=== PATIENT | female | born 1955 | race Caucasian/White ===

== ENCOUNTER 2017-09-12 00:40 | Emergency (ER) | payer MEDICAID ==
[2017-09-12 00:48] VITALS: BP 126/78
--- NOTE | 2017-09-12 00:58 | EDM.PDOC ---
ED HPI GENERAL MEDICAL PROBLEM - General Chief Complaint: Chest Pain Stated Complaint: CHEST PAINS [id number] Time Seen by Provider: 09/12/17 00:53 Source of Information: Reports: Patient History Limitations: Reports: No Limitations - History of Present Illness INITIAL COMMENTS - FREE TEXT/NARRATIVE: woke up from sharp pain middle of lower sternal region felt like got hit with sledge hammer lasted 1 1/2 minutes then subsided but still feels heavy. took 2x ASA then came here. feels better but uncomfortable without the sharp pain. denies prior h/o denies stents/DC, denies COPD but has asthma, denies GERD. Chest Pain Score (Numeric/FACES): 7 - Related Data Allergies Allergy/AdvReac Type Severity Reaction Status Date / Time codeine Allergy Stomach Verified 09/12/17 00:46 Upset nitroglycerin Allergy Rash Verified 09/12/17 00:46 molds Allergy Cough Uncoded 09/12/17 00:46 Home Meds: Home Meds ALPRAZolam [Xanax] 1 mg PO ASDIRECTED PRN 05/07/14 [History] Albuterol Sulfate [Albuterol Sulfate HFA] 8.5 gm IH TID PRN 05/07/14 [History] Hydrochlorothiazide 25 mg PO DAILY 05/07/14 [History] Metoprolol Succinate [Toprol XL] 25 mg PO DAILY 05/07/14 [History] Montelukast [Singulair] 10 mg PO DAILY 05/07/14 [History] PARoxetine HCl [Paxil] 70 mg PO DAILY 05/07/14 [History] oxyCODONE HCl/Acetaminophen [Percocet 10-325 MG] 10 mg PO TID PRN 05/07/14 [ History] Albuterol [Proventil HFA] 6.7 gm INH DAILY 03/29/16 [History] Cyanocobalamin (Vitamin B12) [Vitamin B13] 500 mcg PO DAILY 03/29/16 [History] Lysine 500 mg PO DAILY 03/29/16 [History] Omeprazole 20 mg PO DAILY 03/29/16 [History] Topiramate [Topamax] 25 mg PO DAILY 03/29/16 [History] Past Medical History Cardiovascular History: Reports: Other (See Below) Other Cardiovascular History: mitral valve prolapse Respiratory History: Reports: Asthma, Other (See Below) Other Respiratory History: has had pnumonia greater then 25 times, during asthma studies under age 14 was hospitalized. Genitourinary History: Reports: None [employer] History: Reports: Polycystic Ovaries Musculoskeletal History: Reports: Back Pain, Chronic, Other (See Below) Other Musculoskeletal History: DJD, scoliosis, spinal stenosis, bulging disc, fx discs, 4.5cm tear to right rotar cuff Neurological History: Reports: Head Trauma, Migraines Psychiatric History: Reports: Anxiety, Bipolar, PTSD, Other (See Below) Other Psychiatric History: borderline personality disorder Hematologic History: Reports: Other (See Below) Other Hematologic History: low potassium - Infectious Disease History Infectious Disease History: Reports: Measles, Mumps - Past Surgical History Female Surgical History: Reports: Section, Other (See Below) Social & Family History - Tobacco Use Smoking Status *Q: Never Smoker Second Hand Smoke Exposure: No - Caffeine Use Caffeine Use: Reports: Coffee, Soda - Alcohol Use Days Per Week of Alcohol Use: 0 - Recreational Drug Use Recreational Drug Use: No Drug Use in Last 12 Months: No - Living Situation & Occupation Living situation: Reports: with Family Occupation: Disabled ED ROS GENERAL - Review of Systems Review Of Systems: ROS reveals no pertinent complaints other than HPI. ED EXAM, GENERAL - Physical Exam Exam: See Below Exam Limited By: No Limitations General Appearance: Alert, WD/WN, Anxious, Mild Distress, Moderate Distress, Other (discomfort) Ears: Hearing Grossly Normal Throat/Mouth: Normal Voice, No Airway Compromise Head: Atraumatic Neck: Non-Tender, Full Range of Motion Respiratory/Chest: No Respiratory Distress, Other (mild sternal tenderness) Cardiovascular: Regular Rate, Rhythm GI/Abdominal: Soft, Non-Tender Neurological: Alert, Oriented, Normal Cognition, Normal Gait, No Motor/Sensory Deficits Psychiatric: Flat Affect Skin Exam: Warm, Dry, Normal Color Lymphatic: No Adenopathy Course - Vital Signs Last Recorded V/S: Last Vital Signs Temp 36.3 C 09/12/17 00:46 Pulse 67 09/12/17 00:46 Resp 18 09/12/17 00:46 BP 126/78 09/12/17 00:46 Pulse Ox 98 09/12/17 00:46 - Orders/Labs/Meds Orders: Active Orders 24 hr Category Date Time Status EKG 12 Lead [EKG Documentation Completion] [RC] STAT Care 09/12/17 02:16 Ordered Sodium Chloride 0.9% [Normal Saline] 1,000 ml Med 09/12/17 01:00 Active IV ASDIRECTED Medication Orders Sodium Chloride (Normal Saline) 1,000 mls @ 150 mls/hr IV ASDIRECTED STEVEN Last Admin: 09/12/17 01:09 Dose: 150 mls/hr Labs: Laboratory Tests 09/12/17 09/12/17 09/12/17 Range/Units 00:58 00:58 00:58 WBC 8.6 (5.0-10.0) 10^3/uL RBC 4.12 L (4.2-5.4) 10^6/uL Hgb 12.5 D (12.0-16.0) g/dL Hct 38.0 (37.0-47.0) % MCV 92.2 D (80-100) fL MCH 30.3 (27.0-34.0) pg MCHC 32.9 L (33.0-35.0) g/dL Plt Count 326 (150-450) 10^3/uL Neut % (Auto) 48.5 (42.2-75.2) % Lymph % (Auto) 40.0 (20.5-50.1) % Alfalfa % (Auto) 10.3 H (2-8) % Eos % (Auto) 1.0 (1.0-3.0) % Baso % (Auto) 0.2 (0.0-1.0) % D-Dimer, Quantitative 185 (0-400) ng/mL Sodium 135 (135-145) mmol/L Potassium 2.8 L (3.6-5.0) mmol/L Chloride 95 L (101-111) mmol/L Carbon Dioxide 32.0 H (21.0-31.0) mmol/L Anion Gap 10.8 BUN 20 H (7-18) mg/dL Creatinine 0.8 (0.6-1.3) mg/dL Est Cr Clr Drug Dosing 51.70 mL/min Estimated GFR (MDRD) > 60 BUN/Creatinine Ratio 25.00 Glucose 82 (74-105) mg/dL Calcium 8.6 (8.4-10.2) mg/dl Total Bilirubin 0.6 (0.2-1.0) mg/dL AST 23 (10-42) IU/L ALT 16 (10-60) IU/L Alkaline Phosphatase 41 L (42-121) IU/L Troponin I 0.03 H* (0.00-0.02) ng/ml Total Protein 6.6 L (6.7-8.2) g/dl Albumin 3.7 (3.2-5.5) g/dl Globulin 2.9 Albumin/Globulin Ratio 1.28 Meds: Medications Generic Name Dose Route Start Last Admin Trade Name Mayra PRN Reason Stop Dose Admin Sodium Chloride 1,000 mls @ 150 mls/hr 09/12/17 01:00 09/12/17 01:09 Normal Saline IV 150 mls/hr ASDIRECTED STEVEN Administration Discontinued Medications Generic Name Dose Route Start Last Admin Trade Name Mayra PRN Reason Stop Dose Admin Ketorolac Tromethamine 15 mg 09/12/17 01:25 09/12/17 01:30 Toradol IVPUSH 09/12/17 01:26 15 mg ONETIME ONE Administration - Re-Assessments/Exams Free Text/Narrative Re-Assessment/Exam: 09/12/17 01:11 re-exam; states chest heaviness & sharp pain gone but now has WALKER with pressure in her head which she gets from the weather. 09/12/17 02:17 results discussed with pt who remains pain free. case discussed with Dr Green @ who kindly accepted pt. Departure - Departure Time of Disposition: 02:18 Disposition: DC/Tfer to Acute Hospital 02 Reason for Transfer *Q: Other Condition: Good Clinical Impression: Elevated troponin I level Chest pain Qualifiers: Chest pain type: other chest pain Qualified Code(s): R07.89 - Other chest pain ; R07.8 - Other chest pain Forms: Interfacility Transfer EMTALA - My Orders Last 24 Hours: My Active Orders 09/12/17 01:00 Sodium Chloride 0.9% [Normal Saline] 1,000 ml IV ASDIRECTED 09/12/17 02:16 EKG 12 Lead [EKG Documentation Completion] [RC] STAT - Assessment/Plan Last 24 Hours: My Active Orders 09/12/17 01:00 Sodium Chloride 0.9% [Normal Saline] 1,000 ml IV ASDIRECTED 09/12/17 02:16 EKG 12 Lead [EKG Documentation Completion] [RC] STAT
[2017-09-12] MEDS ORDERED: Sodium Chloride 0.9% 1,000 ML IV SCH (01:00)
[2017-09-12] MEDS ORDERED: Ketorolac 30 MG/ML SDV IVPUSH ONE (01:25)
[2017-09-12 01:49] LABS: CHLORIDE,CL 95 mmol/L (101-111); SODIUM,NA 135 mmol/L (135-145)
--- NOTE | 2017-09-14 12:34 | EKG ---
09/12/2017 - PASCUAL SCHWAB M - TIME: 2:23:31. 12 lead EKG shows normal sinus rhythm with possible first-degree AV block with heart rate of 65, MS interval of 220. No significant ST elevation or ST depression noted on this 12-lead EKG. [facility] /[id number]
--- NOTE | 2017-09-14 13:01 | EKG ---
09/12/2017 - PASCUAL SCHWAB - TIME: 00:52:59 FINDINGS: A 12-lead EKG shows normal sinus rhythm with first-degree AV block with FL interval of 216, heart rate of 66. No significant ST elevation or ST depression noted on this 12-lead EKG. Nonspecific ST-T wave changes noted on lead V3. [facility] /[id number]
== END 2017-09-12 02:42 ==
LOC: DL.ED 00:40
DX: R07.89 Other chest pain (principal); R79.89 Other specified abnormal findings of blood chemistry; J45.909 Unspecified asthma, uncomplicated; Z88.5 Allergy status to narcotic agent; Z91.048 Other nonmedicinal substance allergy status; Z79.899 Other long term (current) drug therapy
CPT/HCPCS: 36415; 80053; 84484; 85025; 85379; 93005; 96361; 96374; 99285; J1885; J7030

== ENCOUNTER → 2018-09-18 | Outpatient (CLI) | payer MEDICAID | LOC: DL.CLIN 09:44 | PROVIDERS: ATTEND Physician Assistant Medical | DX: M25.561 Pain in right knee (principal); M25.562 Pain in left knee; M17.0 Bilateral primary osteoarthritis of knee | CPT/HCPCS: 73560-LT; 73560-RT; 73565 ==

== ENCOUNTER 2021-10-03 13:37 | Emergency (ER) | payer MEDICARE, MEDICAID ==
[2021-10-03 14:50] VITALS: BP 149/84; PULSE 97
[2021-10-03 15:06] LABS: ANION GAP 18.1 mEq/L (7-13); CHLORIDE,CL 101 mmol/L (98-107); SODIUM,NA 142 mmol/L (136-145)
[2021-10-03] MEDS ORDERED: Iopamidol 612 MG/ML 100 ML Bottle IVPUSH ONE (15:30)
[2021-10-03] MEDS ORDERED: Acetaminophen/oxyCODONE 325-5 MG Tab PO ONE (16:14)
[2021-10-03] MEDS ORDERED: LORazepam 1 MG Tab PO ONE (17:03)
== END 2021-10-03 17:19 | disposition home or self-care (01) ==
LOC: DL.ED 13:37
DX: N28.1 Cyst of kidney, acquired (principal); E87.6 Hypokalemia; F41.9 Anxiety disorder, unspecified; J44.9 Chronic obstructive pulmonary disease, unspecified; K21.9 Gastro-esophageal reflux disease without esophagitis; Z88.5 Allergy status to narcotic agent; Z88.8 Allergy status to other drugs, medicaments and biological substances; Z91.048 Other nonmedicinal substance allergy status; Z79.82 Long term (current) use of aspirin; Z79.899 Other long term (current) drug therapy; Z85.038 Personal history of other malignant neoplasm of large intestine
CPT/HCPCS: 36415; 74177; 80053; 85025; 99284-25; A9270-GY; Q9967

== ENCOUNTER 2023-01-28 19:51 | Emergency (ER) | payer MEDICARE, MEDICAID ==
[2023-01-28 20:37] LABS: BASOPHILS PERCENT AUTO 0.2 % (0.0-1.0); EOSINOPHILS PERCENT AUTO 0.1 % (1.0-3.0); HEMOGLOBIN 13.6 g/dL (12.0-16.0); LYMPHOCYTES PERCENT AUTO 32.3 % (20.5-50.1); MEAN CORPUSCULAR HEMOGLOBIN 28.9 pg (27.0-34.0); MEAN CORPUSCULAR HGB CONC 33.2 g/dL (33.0-35.0); NEUTROPHILS PERCENT AUTO 55.4 % (42.2-75.2); PLATELET COUNT,PLT 494 10^3/uL (150-450); RED BLOOD CELL COUNT 4.71 10^6/uL (4.2-5.4); WHITE BLOOD CELL COUNT,WBC 10.3 10^3/uL (5.0-10.0)
[2023-01-28 20:39] VITALS: BP 156/92; PULSE 122
[2023-01-28 20:48] LABS: ALANINE AMINOTRANSFERASE,ALT 18 U/L (14-59); ALBUMIN 3.3 g/dL (3.4-5.0); ALKALINE PHOSPHATASE 65 U/L (46-116); ANION GAP 12.5 mEq/L (7-13); ASPARTATE AMNIOTRANSFERASE,AST 19 U/L (15-37); BILIRUBIN TOTAL 0.4 mg/dL (0.2-1.0); BLOOD UREA NITROGEN,BUN 9 mg/dL (7-18); BUN/CREATININE RATIO 8.3 (No establ ref range); CALCIUM 9.2 mg/dL (8.5-10.1); CARBON DIOXIDE,CO2 30 mmol/L (21-32); CHLORIDE,CL 102 mmol/L (98-107); CREATININE 1.08 mg/dL (0.55-1.02); EST CRCL DRUG DOSING (CG) 35.81 mL/min; GLUCOSE RANDOM 130 mg/dL (70-99); LIPASE 170 U/L (73-393); MAGNESIUM 1.8 mg/dL (1.8-2.4); POTASSIUM,K 2.5 mmol/L (3.5-5.1); SODIUM,NA 142 mmol/L (136-145)
[2023-01-28 20:50] LABS: A/G RATIO 0.89; C-REACTIVE PROTEIN < 0.2 mg/dL (0.0-0.9); ESTIMATED GFR 56 mL/min (>=60); ETHANOL BLOOD MEDICAL < 3 mg/dL (0)
[2023-01-28 20:55] LABS: APPEARANCE,URINE CLEAR (CLEAR); BILIRUBIN,URINE NEGATIVE (NEGATIVE); COLOR,URINE YELLOW (YELLOW); GLUCOSE,URINE NEGATIVE (NEGATIVE); KETONES,URINE NEGATIVE (NEGATIVE); LEUKOCYTE ESTERASE,URINE NEGATIVE (NEGATIVE); NITRITE,URINE NEGATIVE (NEGATIVE); OCCULT BLOOD,URINE NEGATIVE (NEGATIVE); PH,URINE 6.5 (5.0-9.0); PROTEIN,URINE NEGATIVE (NEGATIVE); UROBILINOGEN,URINE 0.2 mg/dL (0.2-1.0)
[2023-01-28 20:56] LABS: AMPHETAMINES,URINE NEGATIVE (NEGATIVE); BARBITURATES,URINE NEGATIVE (NEGATIVE); BENZODIAZEPINE,URINE NEGATIVE (NEGATIVE); MDMA (ECSTASY), URINE NEGATIVE (NEGATIVE); METHADONE,URINE NEGATIVE (NEGATIVE); METHAMPHETAMINES,URINE NEGATIVE (NEGATIVE); OPIATES,URINE NEGATIVE (NEGATIVE); OXYCODONE,URINE NEGATIVE (NEGATIVE); PHENCYCLIDINE,URINE NEGATIVE (NEGATIVE); TCA,URINE NEGATIVE (NEGATIVE)
[2023-01-28] MEDS: Potassium Chloride 10% 20 MEQ/15 ML Soln 15 ML UD Cup PO ONE ×2 (21:23→22:20)
[2023-01-28] MEDS: Sodium Chloride 0.9% 1,000 ML IV ONE (21:23)
[2023-01-28 21:56] LABS: O2 DELIVERY DEVICE ROOM AIR
[2023-01-28 21:57] LABS: BASE EXCESS ARTERIAL 1 mmol/L ((-2)-(+3)); BICARBONATE,ARTERIAL 25.1 mmol/L (22-26); O2 SATURATION ARTERIAL 97 % (95-100); PCO2 ARTERIAL 40 mmHg (35-45); PH,ARTERIAL 7.42 (7.35-7.45); PO2 ARTERIAL 90 mmHg (70-100)
[2023-01-28 21:58] LABS: ALLEN TEST positive
== END 2023-01-28 22:30 | disposition home or self-care (01) ==
LOC: DL.ED 19:51
DX: E86.0 Dehydration (principal); R43.1 Parosmia; R43.8 Other disturbances of smell and taste; R03.0 Elevated blood-pressure reading, without diagnosis of hypertension; J44.9 Chronic obstructive pulmonary disease, unspecified; K21.9 Gastro-esophageal reflux disease without esophagitis; E66.9 Obesity, unspecified; Z68.37 Body mass index [BMI] 37.0-37.9, adult; Z86.16 Personal history of COVID-19; Z91.048 Other nonmedicinal substance allergy status; Z88.5 Allergy status to narcotic agent; Z88.8 Allergy status to other drugs, medicaments and biological substances; Z79.899 Other long term (current) drug therapy; Z79.82 Long term (current) use of aspirin; Z20.822 Contact with and (suspected) exposure to COVID-19
CPT/HCPCS: 36415; 36600; 71045; 80053; 80305-QW; 80307; 81003; 82375; 82803; 83605; 83690; 83735; 85025; 86140; 96360; 99284; 99284-25; A9270-GY; J7030; U0002

== ENCOUNTER 2023-02-02 03:20 | Emergency (ER) | payer MEDICARE, MEDICAID ==
[2023-02-02] MEDS ORDERED: Sodium Chloride 0.9% 10 ML Syringe FLUSH PRN (04:05)
[2023-02-02 04:21] LABS: HEMATOCRIT 38.3 % (37.0-47.0); HEMOGLOBIN 12.7 g/dL (12.0-16.0); MEAN CORPUSCULAR HEMOGLOBIN 28.9 pg (27.0-34.0); MEAN CORPUSCULAR HGB CONC 33.2 g/dL (33.0-35.0); MEAN CORPUSCULAR VOLUME 87.2 fL (80-100); PLATELET COUNT,PLT 487 10^3/uL (150-450); RED BLOOD CELL COUNT 4.39 10^6/uL (4.2-5.4); WHITE BLOOD CELL COUNT,WBC 8.9 10^3/uL (5.0-10.0)
[2023-02-02 04:28] LABS: BASOPHILS PERCENT AUTO 0.2 % (0.0-1.0); LYMPHOCYTES PERCENT AUTO 18.1 % (20.5-50.1); MONOCYTES PERCENT AUTO 5.9 % (2-8); NEUTROPHILS PERCENT AUTO 75.8 % (42.2-75.2)
[2023-02-02 04:32] VITALS: BP 143/92; PULSE 105
[2023-02-02 04:35] LABS: LYMPHOCYTES PERCENT MAN 23 % (20-50); MONOCYTES PERCENT MAN 4 % (2-8); SEG NEUTROPHILS PERCENT MAN 73 % (42-75)
[2023-02-02 04:38] LABS: ALBUMIN 3.1 g/dL (3.4-5.0); ANION GAP 12.4 mEq/L (7-13); BILIRUBIN TOTAL 0.5 mg/dL (0.2-1.0); BUN/CREATININE RATIO 13.7 (No establ ref range); CALCIUM 8.6 mg/dL (8.5-10.1); CREATININE 0.95 mg/dL (0.55-1.02); EST CRCL DRUG DOSING (CG) 57.17 mL/min; MAGNESIUM 1.7 mg/dL (1.8-2.4); POTASSIUM,K 3.4 mmol/L (3.5-5.1); PROTEIN TOTAL,TP 6.3 g/dL (6.4-8.2)
[2023-02-02 04:42] LABS: LACTIC ACID 1.6 mmol/L (0.4-2.0)
[2023-02-02 04:44] LABS: A/G RATIO 0.97
[2023-02-02] MEDS ORDERED: Iopamidol 612 MG/ML 100 ML Bottle IVPUSH ONE (04:45)
== END 2023-02-02 06:31 | disposition home or self-care (01) ==
LOC: DL.ED 03:20
DX: R10.84 Generalized abdominal pain (principal); I10 Essential (primary) hypertension; I25.2 Old myocardial infarction; J44.9 Chronic obstructive pulmonary disease, unspecified; K21.9 Gastro-esophageal reflux disease without esophagitis; E66.9 Obesity, unspecified; Z68.27 Body mass index [BMI] 27.0-27.9, adult; Z88.5 Allergy status to narcotic agent; Z91.048 Other nonmedicinal substance allergy status; Z79.899 Other long term (current) drug therapy
CPT/HCPCS: 36415; 74177; 80053; 83605; 83690; 83735; 85025; 99284; Q9967; J3490

== ENCOUNTER 2023-04-23 14:57 | Emergency (ER) | payer MEDICAID, MEDICARE ==
[2023-04-23] MEDS: Sodium Chloride 0.9% 10 ML Syringe FLUSH PRN (15:18)
[2023-04-23 15:33] VITALS: BP 172/73; PULSE 98
[2023-04-23 15:35] LABS: BASOPHILS PERCENT AUTO 0.5 % (0.0-1.0); EOSINOPHILS PERCENT AUTO 2.9 % (1.0-3.0); HEMATOCRIT 40.6 % (37.0-47.0); HEMOGLOBIN 13.1 g/dL (12.0-16.0); LYMPHOCYTES PERCENT AUTO 37.4 % (20.5-50.1); MEAN CORPUSCULAR HEMOGLOBIN 27.9 pg (27.0-34.0); MEAN CORPUSCULAR HGB CONC 32.3 g/dL (33.0-35.0); MEAN CORPUSCULAR VOLUME 86.6 fL (80-100); MONOCYTES PERCENT AUTO 9.7 % (2-8); NEUTROPHILS PERCENT AUTO 49.5 % (42.2-75.2); PLATELET COUNT,PLT 411 10^3/uL (150-450); RED BLOOD CELL COUNT 4.69 10^6/uL (4.2-5.4); WHITE BLOOD CELL COUNT,WBC 9.3 10^3/uL (5.0-10.0)
[2023-04-23 15:56] LABS: LACTIC ACID 2.2 mmol/L (0.4-2.0)
[2023-04-23 15:59] LABS: ALANINE AMINOTRANSFERASE,ALT 14 U/L (14-59); ALBUMIN 3.1 g/dL (3.4-5.0); ALKALINE PHOSPHATASE 86 U/L (46-116); ANION GAP 13.8 mEq/L (7-13); ASPARTATE AMNIOTRANSFERASE,AST 16 U/L (15-37); BILIRUBIN TOTAL 0.6 mg/dL (0.2-1.0); BLOOD UREA NITROGEN,BUN 6 mg/dL (7-18); BUN/CREATININE RATIO 8.1 (No establ ref range); C-REACTIVE PROTEIN 1.37 ng/dL (<=0.30); CALCIUM 9.2 mg/dL (8.5-10.1); CARBON DIOXIDE,CO2 30 mmol/L (21-32); CHLORIDE,CL 98 mmol/L (98-107); CREATININE 0.74 mg/dL (0.55-1.02); EST CRCL DRUG DOSING (CG) 52.26 mL/min; GLUCOSE RANDOM 97 mg/dL (70-99); MAGNESIUM 1.7 mg/dL (1.8-2.4); POTASSIUM,K 2.8 mmol/L (3.5-5.1); PROTEIN TOTAL,TP 7.3 g/dL (6.4-8.2); SODIUM,NA 139 mmol/L (136-145); TSH ULTRASENSITIVE 2.38 uIU/mL (0.36-3.74)
[2023-04-23 16:02] LABS: A/G RATIO 0.74; ESTIMATED GFR 88 mL/min (>=60); ETHANOL BLOOD MEDICAL < 3 mg/dL (0)
[2023-04-23 16:12] LABS: CORONAVIRUS COVID-19 NAA NEGATIVE (NEGATIVE); INFLUENZA A NAA NEGATIVE (NEGATIVE); INFLUENZA B NAA NEGATIVE (NEGATIVE)
[2023-04-23] MEDS: Potassium Chloride 10 MEQ Tab.ER PO ONE (16:13)
[2023-04-23 16:17] LABS: INR 0.9 (0.9-1.2)
== END 2023-04-23 16:25 | disposition home or self-care (01) ==
LOC: DL.ED 14:57
DX: E87.6 Hypokalemia (principal); I10 Essential (primary) hypertension; I25.2 Old myocardial infarction; J44.9 Chronic obstructive pulmonary disease, unspecified; K21.9 Gastro-esophageal reflux disease without esophagitis; E66.9 Obesity, unspecified; Z68.41 Body mass index [BMI] 40.0-44.9, adult; Z86.16 Personal history of COVID-19; Z88.5 Allergy status to narcotic agent; Z91.048 Other nonmedicinal substance allergy status; Z88.8 Allergy status to other drugs, medicaments and biological substances; Z79.82 Long term (current) use of aspirin; Z79.899 Other long term (current) drug therapy; Z20.822 Contact with and (suspected) exposure to COVID-19
CPT/HCPCS: 0240U; 36415; 70450; 80053; 80307; 82140; 82947; 83605; 83735; 84443; 84484; 85025; 85610; 86140; 93005; 93010; 99284; 99285; A9270-GY; C1758; J3490

== ENCOUNTER 2023-04-23 19:57 | Emergency (ER) | payer MEDICARE ==
[2023-04-23 20:22] VITALS: BP 146/104; PULSE 98
== END 2023-04-23 20:45 | disposition home or self-care (01) ==
LOC: DL.ED 19:57
DX: R53.1 Weakness (principal); I10 Essential (primary) hypertension; I25.2 Old myocardial infarction; J44.9 Chronic obstructive pulmonary disease, unspecified; K21.9 Gastro-esophageal reflux disease without esophagitis; E66.9 Obesity, unspecified; Z79.899 Other long term (current) drug therapy; Z88.5 Allergy status to narcotic agent; Z88.8 Allergy status to other drugs, medicaments and biological substances; Z91.048 Other nonmedicinal substance allergy status; Z86.16 Personal history of COVID-19; Z79.82 Long term (current) use of aspirin
CPT/HCPCS: 99282; 99285